=== PATIENT | male | born 1955 | race Caucasian/White ===

== ENCOUNTER 2017-07-11 11:04 | Emergency (ER) | payer MEDICARE ==
[2017-07-11 11:18] VITALS: O2SAT 95
[2017-07-11] MEDS ORDERED: TORAdol 30 mg Injection ONE (11:25)
[2017-07-11] MEDS ORDERED: Sodium Chloride 0.9% 1000 ML 1,000 ML ONE (11:26)
[2017-07-11] MEDS ORDERED: TORAdol 30 mg Injection IV ONE (11:30)
[2017-07-11] MEDS ORDERED: Sodium Chloride 0.9% 1000 ML 1,000 ML IV STA (11:30)
[2017-07-11] MEDS ORDERED: Zofran 4 MG/2 ML VIAL IV ONE (11:30)
[2017-07-11] MEDS ORDERED: Zofran 4 MG/2 ML VIAL ONE (11:32)
--- NOTE | 2017-07-11 11:37 | ERPHSYRPT ---
- History of Present Illness Time Seen by Provider: 07/11/17 11:30 Source: patient Exam Limitations: no limitations Patient Subjective Stated Complaint: Left sided flank pain, radiation into left side of abdomin. Triage Nursing Assessment: Pt presents to the ED with complaints of left lower back pain with radiation into abdomin, hx of kidney stone. Sent from Dr. Fernández to rule out kidney stone. Pt appears anxious and uncomfortable at this time. Pt states nothing makes pain better or worse. No other complaints noted. Physician History: 61 y/o male comes to the ER with complaints of left flank and left sided abdominal pain that started at 8 pm last night. Pt describes the pain as sharp, constant, 10/10, and not relieved by oxycodone. Pt also admits to nausea, but no vomiting, fever, chills, constipation, diarrhea or urinary symptoms. Pt had a kidney stone a few years ago that passed within an hour. Timing/Duration: yesterday Activites at Onset: none Quality: sharpness Onset Location: suprapubic, left flank Pain Radiation: left flank Severity of Pain-Max: severe Severity of Pain-Current: severe Modifying Factors: Improves With: nothing Associated Symptoms: abdominal pain, nausea Prior abdominal problems: similar symptoms Allergies/Adverse Reactions: No Known Drug Allergies Allergy (Unverified 07/11/17 11:20) Home Medications: Celecoxib [Celecoxib] 200 mg PO DAILY PRN 07/11/17 [History] Losartan Potassium 100 mg PO DAILY 07/11/17 [History] Oxycodone HCl [Oxycodone HCl] 5 mg PO Q6HPRN PRN 07/11/17 [History] Hx Tetanus, Diphtheria Vaccination/Date Given: No Hx Influenza Vaccination/Date Given: No Hx Pneumococcal Vaccination/Date Given: No Immunizations Up to Date: No - Past Medical History Pertinent Past Medical History: No Neurological History: No Pertinent History ENT History: No Pertinent History Cardiac History: Hypertension Respiratory History: No Pertinent History Endocrine Medical History: No Pertinent History Musculoskeletal History: No Pertinent History GI Medical History: No Pertinent History History: No Pertinent History Psycho-Social History: No Pertinent History Male Reproductive Disorders: No Pertinent History - Past Surgical History Past Surgical History: Yes Neuro Surgical History: No Pertinent History Cardiac: No Pertinent History Respiratory: No Pertinent History Gastrointestinal: No Pertinent History Genitourinary: No Pertinent History Musculoskeletal: Orthopedic Surgery Male Surgical History: No Pertinent History Other Surgical History: Back Surgery, elbow surgery, skin cancer removal. - Social History Smoking Status: Former smoker Exposure to second hand smoke: No Drug Use: none Patient Lives Alone: No - Review of Systems Constitutional: No Fever, No Chills Eyes: No Symptoms Ears, Nose, & Throat: No Symptoms Respiratory: No Cough, No Dyspnea Cardiac: No Chest Pain, No Edema, No Syncope Abdominal/Gastrointestinal: Abdominal Pain, Nausea, No Vomiting, No Diarrhea Genitourinary Symptoms: Flank Pain, No Dysuria, No Frequency, No Hematuria, No Hesitancy Musculoskeletal: No Back Pain, No Neck Pain Skin: No Rash Neurological: No Dizziness, No Focal Weakness, No Sensory Changes Psychological: No Symptoms Endocrine: No Symptoms All Other Systems: Reviewed and Negative - Nursing Vital Signs Nursing Vital Signs: Initial Vital Signs Temperature 98.0 F 07/11/17 11:12 Pulse Rate 100 H 07/11/17 11:12 Respiratory Rate 15 07/11/17 11:12 Blood Pressure 194/107 07/11/17 11:12 O2 Sat by Pulse Oximetry 95 07/11/17 11:12 Pain Scale Pain Intensity 2 - Physical Exam General Appearance: moderate distress, alert Eye Exam: PERRL/EOMI Ears, Nose, Throat Exam: pharynx normal, moist mucous membranes Neck Exam: normal inspection, supple Respiratory Exam: normal breath sounds, lungs clear Cardiovascular Exam: regular rate/rhythm, No edema Gastrointestinal/Abdomen Exam: soft, normal bowel sounds, tenderness Back Exam: normal inspection, CVA tenderness Extremity Exam: normal inspection, normal range of motion, No pedal edema Neurologic Exam: alert, oriented x 3, cooperative, sensation nml, No motor deficits Skin Exam: normal color, warm, dry, No rash SpO2: 95 Oxygen Delivery: Room Air - Course Nursing assessment & vital signs reviewed: Yes Ordered Tests: Active Orders 24 hr Category Date Time Status IV Insertion STAT Care 07/11/17 11:30 Active ABDOMEN AND PELVIS W/0 CONTRAS [CT] Stat Exams 07/11/17 11:31 Completed AMYLASE Stat Lab 07/11/17 11:32 Completed CBC W DIFF Stat Lab 07/11/17 11:32 Completed CMP Stat Lab 07/11/17 11:32 Completed CULTURE,URINE Stat Lab 07/11/17 11:32 Received LIPASE Stat Lab 07/11/17 11:32 Completed UA W/ MICROSCOPIC Stat Lab 07/11/17 11:32 Completed Medication Summary Generic Name Dose Route Start Last Admin Trade Name Abel PRN Reason Stop Dose Admin Tamsulosin HCl 0.4 mg 07/12/17 10:00 07/11/17 12:41 Flomax 0.4 Mg PO 07/12/17 10:01 0.4 mg ONCE ONE Administration Discontinued Medications Generic Name Dose Route Start Last Admin Trade Name Abel PRN Reason Stop Dose Admin Sodium Chloride Confirm 07/11/17 11:26 Sodium Chloride 0.9% 1000 Ml Administered 07/11/17 11:27 Dose 1,000 mls @ ud .ROUTE .STK-MED ONE Sodium Chloride 1,000 mls @ 999 mls/hr 07/11/17 11:30 07/11/17 11:33 Sodium Chloride 0.9% 1000 Ml IV 07/11/17 12:30 999 mls/hr .Q1H1M STA Administration Ketorolac Tromethamine Confirm 07/11/17 11:25 Toradol 30 Mg Injection Administered 07/11/17 11:26 Dose 30 mg .ROUTE .STK-MED ONE Ketorolac Tromethamine 30 mg 07/11/17 11:30 07/11/17 11:33 Toradol 30 Mg Injection IV 07/11/17 11:31 30 mg STAT ONE Administration Morphine Sulfate 4 mg 07/11/17 11:41 07/11/17 11:44 Morphine Sulfate 4 Mg Inj IV 07/11/17 11:42 4 mg STAT ONE Administration Morphine Sulfate Confirm 07/11/17 11:43 Morphine Sulfate 4 Mg Inj Administered 07/11/17 11:44 Dose 4 mg .ROUTE .STK-MED ONE Ondansetron HCl 4 mg 07/11/17 11:30 07/11/17 11:33 Zofran 4 Mg/2 Ml Vial IV 07/11/17 11:31 4 mg STAT ONE Administration Ondansetron HCl Confirm 07/11/17 11:32 Zofran 4 Mg/2 Ml Vial Administered 07/11/17 11:33 Dose 4 mg .ROUTE .STK-MED ONE Tamsulosin HCl Confirm 07/11/17 12:39 Flomax 0.4 Mg Administered 07/11/17 12:40 Dose 0.4 mg .ROUTE .[facility] ONE Lab/Rad Data: Laboratory Result Diagrams 07/11/17 11:32 07/11/17 11:32 Laboratory Results 07/11/17 07/11/17 07/11/17 Range/Units 11:32 11:32 11:32 WBC 17.4 H (4.0-10.5) K/mm3 RBC 5.16 (4.1-5.6) M/mm3 Hgb 15.5 (12.5-18.0) gm/dl Hct 45.5 (42-50) % MCV 88.2 (78-100) fl MCH 30.0 (26-32) pg MCHC 34.1 (32-36) g/dl RDW 14.1 H (11.5-14.0) % Plt Count 321 (150-450) K/mm3 MPV 10.3 H (6-9.5) fl Gran % 76.3 H (36.0-66.0) % Eos # (Auto) 0.05 (0-0.5) Absolute Lymphs (auto) 2.32 (1.0-4.6) Absolute Monos (auto) 1.72 H (0.0-1.3) Lymphocytes % 13.3 L (24.0-44.0) % Monocytes % 9.9 (0.0-12.0) % Eosinophils % 0.3 (0.00-5.0) % Basophils % 0.2 (0.0-0.4) % Absolute Granulocytes 13.28 H (1.4-6.9) Basophils # 0.04 (0-0.4) Sodium 136 L (137-145) mmol/L Potassium 3.8 (3.5-5.1) mmol/L Chloride 101 (98-107) mmol/L Carbon Dioxide 23 (22-30) mmol/L Anion Gap 16.0 H (5-15) MEQ/L BUN 15 (9-20) mg/dL Creatinine 1.12 (0.66-1.25) mg/dL Estimated GFR > 60.0 ML/MIN Glucose 137 H (74-106) mg/dL Calcium 9.4 (8.4-10.2) mg/dL Total Bilirubin 0.80 (0.2-1.3) mg/dL AST 27 (17-59) U/L ALT 27 (0-50) U/L Alkaline Phosphatase 115 (38-126) U/L Serum Total Protein 8.0 (6.3-8.2) g/dL Albumin 4.4 (3.5-5.0) g/dL Amylase 94 (30-110) U/L Lipase 148 (23-300) U/L Ur Collection Type CCMS Urine Color YELLOW (YELLOW) Urine Appearance CLEAR (CLEAR) Urine pH 5.0 (5-6) Ur Specific [place] 1.025 (1.005-1.025) Urine Protein TRACE (Negative) Urine Ketones NEGATIVE (NEGATIVE) Urine Blood MODERATE (0-5) Benji/ul Urine Nitrite NEGATIVE (NEGATIVE) Urine Bilirubin NEGATIVE (NEGATIVE) Urine Urobilinogen NORMAL (0-1) mg/dL Ur Leukocyte Esterase NEGATIVE (NEGATIVE) Urine Microscopic RBC 10-15 (0-2) /HPF Urine Microscopic WBC 0-2 (0-5) /HPF Ur Epithelial Cells RARE (FEW) /HPF Urine Bacteria RARE (NEGATIVE) /HPF Urine Mucus SLIGHT (NEGATIVE) /HPF Urine Culture Reflexed YES (NO) Urine Glucose NEGATIVE (NEGATIVE) mg/dL Slides for Path Review YES Specimen Received [id number] - Progress Progress: improved Progress Note: 07/11/17 13:[address] scan abd/pelvis shows a 9mm nonobstructing stone in the UPJ. The patient feels much better after receiving morphine, NS fluids and zofran. Pt was also given a dose of flomax. Pt has a white count of 17,000 but there is no sign of infection in the urine. I spoke to Dr Ndiaye who wants to see the patient as soon as possible. Pt will be d/c home on percocet, zofran and flomax. - Departure Time of Disposition: 13:04 Departure Disposition: Home Clinical Impression: Kidney stone Condition: Stable Critical Care Time: No Referrals: KELLIE FERNÁNDEZ MD [Primary Care Provider] - ODALYS NDIAYE MD [NON-STAFF PHY W/O PRIVILEGES] - Instructions: Kidney Stones (DC) Additional Instructions: We have set up an appointment for you with Dr Urbina, urologist for the following time: Monday, on July 14 with Peyton Li NP Prescriptions: Ondansetron ODT 4 MG [Zofran Odt 4 mg] 4 mg PO Q6H PRN PRN #10 tab.rapdis PRN Reason: Nausea/Vomiting Oxycodone HCl/Acetaminophen [Percocet 5-325 mg Tablet] 1 each PO QID PRN #15 tablet MDD 4 PRN Reason: Severe Pain Tamsulosin HCl 0.4 mg [Flomax 0.4 MG] 0.4 mg PO DAILY #10 cap
[2017-07-11] MEDS ORDERED: MORPHINE SULFATE 4 MG INJ IV ONE (11:41)
[2017-07-11 11:42] LABS: BASOPHIL % 0.2 % (0.0-0.4); Basophil (Absolute #) 0.04 (0-0.4); Eosinophil % 0.3 % (0.00-5.0); Eosinophil (Absolute #) 0.05 (0-0.5); Granulocyte Absolute (ANC) 13.28 (1.4-6.9); Granulocytes % 76.3 % (36.0-66.0); Hematocrit 45.5 % (42-50); Hemoglobin 15.5 gm/dl (12.5-18.0); Lymphocyte (Absolute #) 2.32 (1.0-4.6); Lymphocytes % 13.3 % (24.0-44.0); Mean Cell Volume 88.2 fl (78-100); Mean Corpuscular Hgb Concent. 34.1 g/dl (32-36); Mean Platelet Volume 10.3 fl (6-9.5); Monocyte (Absolute #) 1.72 (0.0-1.3); Monocytes % 9.9 % (0.0-12.0); Platelet Count 321 K/mm3 (150-450); Red Blood Count 5.16 M/mm3 (4.1-5.6); Red Cell Distribution Width 14.1 % (11.5-14.0); White Blood Count 17.4 K/mm3 (4.0-10.5)
[2017-07-11] MEDS ORDERED: MORPHINE SULFATE 4 MG INJ ONE (11:43)
[2017-07-11 11:45] LABS: Appearance CLEAR (CLEAR); Leukocyte Esterase NEGATIVE (NEGATIVE); Nitrite NEGATIVE (NEGATIVE); Specific Gravity 1.025 (1.005-1.025)
[2017-07-11 11:46] LABS: Bilirubin NEGATIVE (NEGATIVE); Blood MODERATE Ery/ul (0-5); Glucose NEGATIVE (NEGATIVE); Ketones NEGATIVE (NEGATIVE); Protein,Urine Dip TRACE (Negative); Urobilinogen NORMAL mg/dL (0-1)
[2017-07-11 11:47] LABS: ALBUMIN 4.4 g/dL (3.5-5.0); ALKALINE PHOSPHATASE 115 U/L (38-126); AMYLASE 94 U/L (30-110); BLOOD UREA NITROGEN 15 mg/dL (9-20); CHLORIDE 101 mmol/L (98-107); Calcium 9.4 mg/dL (8.4-10.2); Carbon Dioxide 23 mmol/L (22-30); Creatinine 1 1.12 mg/dL (0.66-1.25); Glucose 137 mg/dL (74-106); LIPASE 148 U/L (23-300); Potassium 3.8 mmol/L (3.5-5.1); SGOT/AST 27 U/L (17-59); SGPT/ALT 27 U/L (0-50); SODIUM 136 mmol/L (137-145)
[2017-07-11 11:52] LABS: Bacteria RARE /HPF (NEGATIVE); Epithelial Cells RARE /HPF (FEW); Mucus SLIGHT /HPF (NEGATIVE); WBC 0-2 /HPF (0-5)
[2017-07-11 11:53] LABS: Slide Review 1 YES
--- NOTE | 2017-07-11 12:32 | XRAY ---
Indication: Left flank pain. Multiple contiguous axial images obtained through the abdomen and pelvis without contrast using renal stone protocol. Comparison: None Lung bases demonstrates scattered bilateral subsegmental atelectasis/scarring and tiny right base calcified granuloma. No infiltrate or effusion. Heart is not enlarged. There is a 9 mm nonobstructing left UPJ calculus. No renal calculus or evidence for obstructive uropathy in the right system. Noncontrasted stomach and bowel loops appear nonobstructed. Normal appendix. Mild scattered descending/sigmoid diverticulosis without diverticulitis. No free fluid/air. Right lobe of the liver demonstrates patchy hypoattenuations, possibly hepatic steatosis. Underlying masses not completely excluded on this noncontrast exam. Remaining gallbladder, pancreas, spleen, adrenal glands, kidneys, ureters, and bladder appear unremarkable for noncontrast exam. Mild aortoiliac calcifications without AAA. Osseous structures intact with mild multilevel degenerative spondylosis, greatest at the L4-L5 level. Small bilateral fatty inguinal hernias. Impression: 1. 9 mm nonobstructing left UPJ calculus. 2. Patchy hepatic hypodensities predominantly in the right lobe of the liver, possible hepatic steatosis. Underlying masses not completely excluded on this noncontrast exam. 3. Colonic diverticulosis without diverticulitis. 4. Bilateral fatty inguinal hernias. CT DI 23.68
[2017-07-11] MEDS ORDERED: Flomax 0.4 MG ONE (12:39)
[2017-07-11 13:18] VITALS: BP 167/102; PULSE 84
[2017-07-12] MEDS ORDERED: Flomax 0.4 MG PO ONE (10:00)
== END 2017-07-11 13:18 | disposition home or self-care (01) ==
LOC: ED 11:04
DX: N20.0 Calculus of kidney (principal); R11.0 Nausea; Z87.442 Personal history of urinary calculi; Z79.899 Other long term (current) drug therapy
CPT/HCPCS: 36000; 36415; 74176; 80053; 81000; 82150; 83690; 85025; 87086; 96360; 96374; 96375; 99284; J1885; J2270; J2405; A9270-GY

== ENCOUNTER → 2017-07-12 | Emergency (ER) | payer MEDICARE ==
[~2017-07-12] MED LIST: DILAUDID 2 MG INJECTION ONE; Flomax 0.4 MG ONE; Flomax 0.4 MG PO ONE; Hydromorphone 1 mg/ml Ampule IV ONE; MORPHINE SULFATE 4 MG INJ IV ONE; MORPHINE SULFATE 4 MG INJ ONE; Sodium Chloride 0.9% 1000 ML 1,000 ML IV STA; Sodium Chloride 0.9% 1000 ML 1,000 ML ONE; TORAdol 30 mg Injection IV ONE; TORAdol 30 mg Injection ONE; Zofran 4 MG/2 ML VIAL IV ONE; Zofran 4 MG/2 ML VIAL ONE
--- NOTE | 2017-07-12 01:16 | ERPHSYRPT ---
- History of Present Illness Time Seen by Provider: 07/12/17 01:14 Source: patient Exam Limitations: no limitations Physician History: 61 y/o male comes back to the ER after being diagnosed with a 9 mm left sided kidney stone. Pt states that the pain came back at 11pm. Pt describes the pain as sharp, constant, 10/10 and not relieved by percocet. Pt also admits to nausea , but no vomiting, fever, chills, or urinary symptoms. Timing/Duration: today Activites at Onset: none Quality: sharpness Onset Location: left flank Pain Radiation: left flank Severity of Pain-Max: severe Severity of Pain-Current: severe Modifying Factors: Improves With: nothing Associated Symptoms: nausea Prior abdominal problems: none Sexual intercourse history: non-contributory Allergies/Adverse Reactions: No Known Drug Allergies Allergy (Unverified 07/11/17 11:20) Home Medications: Celecoxib [Celecoxib] 200 mg PO DAILY PRN 07/11/17 [History] Losartan Potassium 100 mg PO DAILY 07/11/17 [History] Oxycodone HCl [Oxycodone HCl] 5 mg PO Q6HPRN PRN 07/11/17 [History] Hx Tetanus, Diphtheria Vaccination/Date Given: No Hx Influenza Vaccination/Date Given: No Hx Pneumococcal Vaccination/Date Given: No - Past Medical History Pertinent Past Medical History: No Neurological History: No Pertinent History ENT History: No Pertinent History Cardiac History: Hypertension Respiratory History: No Pertinent History Endocrine Medical History: No Pertinent History Musculoskeletal History: No Pertinent History GI Medical History: No Pertinent History History: No Pertinent History Psycho-Social History: No Pertinent History Male Reproductive Disorders: No Pertinent History - Past Surgical History Past Surgical History: Yes Neuro Surgical History: No Pertinent History Cardiac: No Pertinent History Respiratory: No Pertinent History Gastrointestinal: No Pertinent History Genitourinary: No Pertinent History Musculoskeletal: Orthopedic Surgery Male Surgical History: No Pertinent History Other Surgical History: Back Surgery, elbow surgery, skin cancer removal. - Social History Smoking Status: Former smoker Exposure to second hand smoke: No Drug Use: none Patient Lives Alone: No - Review of Systems Constitutional: No Fever, No Chills Eyes: No Symptoms Ears, Nose, & Throat: No Symptoms Respiratory: No Cough, No Dyspnea Cardiac: No Chest Pain, No Edema, No Syncope Abdominal/Gastrointestinal: Abdominal Pain, Nausea, No Vomiting, No Diarrhea Genitourinary Symptoms: Flank Pain, No Dysuria, No Frequency, No Hematuria Musculoskeletal: No Back Pain, No Neck Pain Skin: No Rash Neurological: No Dizziness, No Focal Weakness, No Sensory Changes Psychological: No Symptoms Endocrine: No Symptoms All Other Systems: Reviewed and Negative - Nursing Vital Signs Nursing Vital Signs: Initial Vital Signs Temperature 98.5 F 07/12/17 01:07 Pulse Rate 94 H 07/12/17 01:07 Blood Pressure 163/9 07/12/17 01:07 O2 Sat by Pulse Oximetry 96 07/12/17 01:07 Pain Scale Pain Intensity 10 - Physical Exam General Appearance: moderate distress, alert Eye Exam: PERRL/EOMI Ears, Nose, Throat Exam: pharynx normal, moist mucous membranes Neck Exam: normal inspection, supple Respiratory Exam: normal breath sounds, lungs clear Cardiovascular Exam: regular rate/rhythm, No edema Gastrointestinal/Abdomen Exam: soft, normal bowel sounds, No tenderness Back Exam: normal inspection, normal range of motion, No CVA tenderness Extremity Exam: normal inspection, normal range of motion, No pedal edema Neurologic Exam: alert, oriented x 3, cooperative, sensation nml, No motor deficits Skin Exam: normal color, warm, dry, No rash - Course Nursing assessment & vital signs reviewed: Yes Ordered Tests: Medication Summary Discontinued Medications Generic Name Dose Route Start Last Admin Trade Name Abel PRN Reason Stop Dose Admin Hydromorphone HCl Confirm 07/12/17 01:46 Dilaudid 2 Mg Injection Administered 07/12/17 01:47 Dose 2 mg .ROUTE .STK-MED ONE Hydromorphone HCl 1 mg 07/12/17 02:56 Hydromorphone 1 Mg/Ml Ampule IV 07/12/17 02:57 STAT ONE Sodium Chloride 1,000 mls @ 999 mls/hr 07/12/17 01:13 07/12/17 01:22 Sodium Chloride 0.9% 1000 Ml IV 07/12/17 02:13 999 mls/hr .Q1H1M STA Administration Sodium Chloride Confirm 07/12/17 01:16 Sodium Chloride 0.9% 1000 Ml Administered 07/12/17 01:17 Dose 1,000 mls @ ud .ROUTE .STK-MED ONE Sodium Chloride Confirm 07/12/17 01:46 Sodium Chloride 0.9% 1000 Ml Administered 07/12/17 01:47 Dose 1,000 mls @ ud .ROUTE .STK-MED ONE Ketorolac Tromethamine 30 mg 07/12/17 02:56 Toradol 30 Mg Injection IV 07/12/17 02:57 STAT ONE Morphine Sulfate 4 mg 07/12/17 01:12 07/12/17 01:22 Morphine Sulfate 4 Mg Inj IV 07/12/17 01:13 4 mg STAT ONE Administration Morphine Sulfate Confirm 07/12/17 01:16 Morphine Sulfate 4 Mg Inj Administered 07/12/17 01:17 Dose 4 mg .ROUTE .STK-MED ONE Morphine Sulfate 4 mg 07/12/17 02:57 Morphine Sulfate 4 Mg Inj IV 07/12/17 02:58 STAT ONE Ondansetron HCl 4 mg 07/12/17 01:12 07/12/17 01:22 Zofran 4 Mg/2 Ml Vial IV 07/12/17 01:13 4 mg STAT ONE Administration Ondansetron HCl Confirm 07/12/17 01:16 Zofran 4 Mg/2 Ml Vial Administered 07/12/17 01:17 Dose 4 mg .ROUTE .STK-MED ONE Tamsulosin HCl 0.4 mg 07/12/17 01:13 07/12/17 01:22 Flomax 0.4 Mg PO 07/12/17 01:14 0.4 mg ONCE ONE Administration Tamsulosin HCl Confirm 07/12/17 01:16 Flomax 0.4 Mg Administered 07/12/17 01:17 Dose 0.4 mg .ROUTE .STK-MED ONE - Progress Progress: unchanged Progress Note: 07/12/17 02:58 Pt has no relief of pain after receiving morphine 4mg IV, zofran 4mg IV, NS fluids and flomax. Pt was then given dilaudid 1mg IV X 1 dose with no relief. Pt will require transfer to [facility]. Pt has been accepted by ER doctor, Dr Hernandez. 07/12/17 03:02 - Departure Time of Disposition: 03:03 Departure Disposition: Transfer Clinical Impression: Kidney stone Condition: Fair Critical Care Time: Yes Critical Care Time(excluding separately billable procedures): 30-74 minutes Referrals: KELLIE FERNÁNDEZ MD [Primary Care Provider] -
[2017-07-12 03:58] VITALS: BP 142/89; PULSE 86; O2SAT 98
== END | disposition short-term general hospital (02) ==
LOC: ED 01:03
DX: N20.0 Calculus of kidney (principal); R11.0 Nausea; Z79.899 Other long term (current) drug therapy
CPT/HCPCS: 36000; 96360; 96361; 96374; 96375; 96376; 99284; 99285; J1170; J1885; J2270; J2405; A9270-GY